=== PATIENT | female | born 1965 | race Caucasian/White ===

== ENCOUNTER 2017-02-04 06:15 | Day surgery (SDC) | payer OTHER ==
[2017-02-03 09:46] VITALS: BMI 28.2
[2017-02-04] VITALS (12 sets, daily range): BP systolic 116–150; BP diastolic 71–88; PULSE 56–87; RESP 11–20; Ht 157.5 cm; Wt 77.0 kg
[~2017-02-04] VITALS: Ht 157.5 cm; Wt 77.0 kg
[~2017-02-04 06:15] MED LIST: LACTATED RINGER'S 1,000 ML IV* SCH
[2017-02-04 08:51] LABS: BASOPHIL # 0.1 10^3/ul (0.0-0.1); EOSINOPHILS # 0.2 10^3/ul (0.0-0.5); EOSINOPHILS % 3.3 % (0.0-7.0); HEMATOCRIT 40.1 % (37.0-47.0); HEMOGLOBIN 13.2 g/dl (12.0-16.0); LYMPHOCYTES # 1.7 10^3/ul (0.8-2.9); LYMPHOCYTES % 35.3 % (15.0-51.0); MEAN CORPUSCULAR HEMOGLOBIN 30.2 pg (29.0-33.0); MEAN CORPUSCULAR HGB CONC 32.9 g/dl (32.0-37.0); MEAN CORPUSCULAR VOLUME 91.8 fl (82.0-101.0); MEAN PLATELET VOLUME 10.1 fl (7.4-10.4); MONOCYTE # 0.4 10^3/ul (0.3-0.9); MONOCYTES % 7.6 % (0.0-11.0); NEUTROPHILS % 52.8 % (39.0-77.0); PLATELET COUNT 220 10^3/UL (140-415); RED BLOOD COUNT 4.37 10^6/ul (4.20-5.40); WHITE BLOOD COUNT 4.8 10^3/ul (4.8-10.8)
[2017-02-04 09:15] LABS: ALBUMIN 3.9 g/dl (3.3-4.9); ALBUMIN/GLOBULIN RATIO 1.14; BILIRUBIN,INDIRECT 0.1 mg/dl (0-1.1); BILIRUBIN,TOTAL 0.1 mg/dl (0.2-1.3); TOTAL PROTEIN 7.3 g/dl (6.1-8.1)
[2017-02-04 09:21] LABS: CALCIUM 9.5 mg/dl (8.4-10.2); CREATININE 0.72 mg/dl (0.44-1.00); POTASSIUM 4.3 mmol/L (3.5-5.1)
[2017-02-04] MEDS ORDERED: FENTAnyl 50 MCG/ML VIAL ONE (09:53)
[2017-02-04] MEDS ORDERED: MIDAZOLAM 1 MG/ML 2 ML INJ ONE (09:53)
[2017-02-04] MEDS ORDERED: LIDOCAINE 2% (SDV) 5 ML INJ ONE (10:30)
[2017-02-04] MEDS ORDERED: CEFAZOLIN 1 GM INJ ONE (10:30)
[2017-02-04] MEDS ORDERED: PROPOFOL 20 ML ONE (10:30)
[2017-02-04] MEDS ORDERED: ONDANSETRON 4 MG INJ ONE (10:31)
--- NOTE | 2017-02-04 10:47 | SIPON ---
Date/Time of Note Date/Time of Note DATE: 02/04/17 TIME: 10:44 Operative Report Preoperative Diagnosis Postmenopausal bleeding Postoperative Diagnosis Same Operation/Procedure Performed Dilation and Curettage Surgeon: MARY MOREAU MD Anesthesia Type: general Estimated Blood Loss: minimal Transfusion Required: no Specimens Endocervical curetting and endometrial curetting Grafts/Implants: none Complications: no MARY MOREAU MD Feb 04, 2017 10:47
[2017-02-04] MEDS ORDERED: morphine (1 MG/ML) 10ML SYRINGE IV PRN (11:00)
[2017-02-04] MEDS ORDERED: ONDANSETRON 4 MG INJ IV PRN (11:00)
[2017-02-04] MEDS ORDERED: MEPERIDINE 25 MG INJ IV PRN (11:00)
[2017-02-04] MEDS ORDERED: DIPHENHYDRAMINE 50 MG INJ IV PRN (11:00)
[2017-02-04] MEDS ORDERED: FENTAnyl 50 MCG/ML VIAL IV PRN (11:00)
--- NOTE | 2017-02-04 11:12 | PREOPHP ---
DATE OF ADMISSION: 02/04/2017 HISTORY OF PRESENT ILLNESS: A 51-year-old female, 1, para 1, who is admitted with history of postmenopausal bleeding. PAST MEDICAL HISTORY: Unremarkable. PAST SURGICAL HISTORY: section. ALLERGIES: NO KNOWN ALLERGIES. FAMILY HISTORY: Noncontributory. PHYSICAL EXAMINATION: VITAL SIGNS: The patient is afebrile. Vital signs stable. HEAD, NECK AND CHEST: Examination of head, neck and chest within normal limits. ABDOMEN: Soft, nontender, nondistended. GENITOURINARY: Pelvic exam is normal. EXTREMITIES/NEUROLOGIC: Examination of extremities and neurologic within normal limits. IMPRESSION: Postmenopausal bleeding. PLAN: Dilation and curettage. The risks, benefits, and alternatives of procedure were explained to the patient. The patient stated she understood and gave informed consent for the procedure. Dictated By: Corbin Theodore MD /vivienne/dayday /Document#: [id number]
--- NOTE | 2017-02-04 11:18 | OPR ---
DATE OF OPERATION: 02/04/2017 PREOPERATIVE DIAGNOSIS: Postmenopausal bleeding. POSTOPERATIVE DIAGNOSIS: Postmenopausal bleeding. OPERATIVE PROCEDURE: Endocervical curettage, dilation and endometrial curettage. SURGEON: Corbin Theodore MD ANESTHESIA: General. ANESTHESIOLOGIST: Dr. Keith OPERATION PERFORMED: Patient was taken to the operating room and placed on the operating table in supine position. After adequate general anesthesia was given, the patient was placed in dorsal lithotomy position. The area was prepared and draped in the usual sterile fashion. A speculum was placed inside the vagina and tenaculum was used to grasp the anterior lip of the cervix. Using a Kevorkian curette, endocervical curettage was performed and specimen obtained was sent to pathology. Next, using cervical dilators, the cervical os was dilated. Using a sharp curette, endometrial curettage was performed. The specimen obtained was sent to pathology. All the instruments were removed. Adequate hemostasis was assured. Patient tolerated the procedure well. The patient was awakened from anesthesia and transferred to recovery room in stable condition. ESTIMATED BLOOD LOSS: Minimal. COMPLICATIONS: None. All counts were correct. Dictated By: Corbin Theodore MD /vivienne/dayday /Document#: [id number]
--- NOTE | 2017-02-07 17:07 | RADRPT ---
Vent Rate: 55 bpm RR Interval: 0 msec SC Interval: 172 msec QRS Duration: 80 msec QT Interval: 420 msec QTC Interval: 401 msec P-R-T [place]: 52 - 49 - 57 degrees Sinus bradycardia Otherwise normal ECG Electronically Signed By: Momo De La Cruz [id number]
== END 2017-02-04 13:10 | disposition home or self-care (01) ==
LOC: SDS 06:15
PROVIDERS: ATTEND Obstetrics & Gynecology
DX: N92.4 Excessive bleeding in the premenopausal period (principal); E66.9 Obesity, unspecified; Z68.31 Body mass index [BMI] 31.0-31.9, adult
CPT/HCPCS: 58120; 80053; 85025; 86850; 86900; 86901; 88305; 93005; J0690; J2175; J2250; J2405; J3010; Z7512; Z7610; J2270